=== PATIENT | male | born 2005 | race African-American/Black ===

== ENCOUNTER 2023-06-25 09:19 | Emergency (ER) | payer OTHER ==
[~2023-06-25] VITALS: Ht 185.4 cm; Wt 99.8 kg
[~2023-06-25 09:19] MED LIST: AMOX50SU PO; CEPH250SUA PO; IBUP100S; SULF10OPSA OU; SULTRIEL PO
[2023-06-25 09:48] VITALS: BP 135/76
[2023-06-25 10:39] LABS: Source, Urine Clean Catch
[2023-06-25 10:41] LABS: Appearance, Urine Clear (Clear); Bilirubin, Urine Neg (Neg); Blood, Urine Neg (Neg); Color, Urine Yellow (P-Yellow); Glucose Qualitative, Urine Neg (Neg); Ketones, Urine Neg (Neg); Leukocyte Esterase, Urine Neg (Neg); Nitrite, Urine Neg (Neg); Protein, Urine Neg (Neg); Urobilinogen, Urine NORM (Normal)
[2023-06-25] MEDS ORDERED: IBUP800 PO (11:22)
== END 2023-06-25 11:30 | disposition home or self-care (01) ==
LOC: ER 09:19
PROVIDERS: Physician Assistant
DX: N44.03 Torsion of appendix testis (principal)
CPT/HCPCS: 76870; 81003; 99284-25